=== PATIENT | male | born 1955 | race Caucasian/White ===

== ENCOUNTER → 2018-08-31 | Outpatient (CLI) | payer OTHER ==
[~2018-08-31] MED LIST: AMLO-113 PO; DIPH0.5D12 IM; LISI-374 PO
[2018-08-31 13:55] LABS: PLATELET COUNT, AUTOMATED 262 K/uL (150-450)
[2018-08-31 14:02] LABS: LDL CHOLESTEROL 87 mg/dl
== END ==
LOC: LAB 13:07
PROVIDERS: ATTEND Emergency Medicine
DX: I10 Essential (primary) hypertension (principal); R06.02 Shortness of breath
CPT/HCPCS: 36415; 82040; 82247; 82310; 82374; 82435; 82465; 82565; 82947; 83036; 83718; 84075; 84132; 84153; 84155; 84295; 84443; 84450; 84460; 84478; 84520; 85025; 85379

== ENCOUNTER → 2018-12-29 | Outpatient (CLI) | payer OTHER ==
[~2018-12-29] MED LIST changes: -AMLO-113 PO; +AMLO-127 PO; +HYDR12.556 PO; +METO100T20 PO; +METO200T12 PO; +ROSU10TA5 PO
== END ==
LOC: LAB 07:35
PROVIDERS: ATTEND Emergency Medicine
DX: E78.5 Hyperlipidemia, unspecified (principal)
CPT/HCPCS: 36415; 82465; 83718; 84478

== ENCOUNTER → 2018-12-30 | Outpatient (CLI) | payer OTHER | LOC: RESP 01:44 | PROVIDERS: ATTEND Emergency Medicine | DX: G47.33 Obstructive sleep apnea (adult) (pediatric) (principal) ==